=== PATIENT | female | born 1970 | race African-American/Black ===

== ENCOUNTER 2017-01-27 16:40 | Emergency (ER) | payer OTHER ==
[~2017-01-27] VITALS: Ht 165.1 cm; Wt 144.2 kg
[2017-01-27 16:43] VITALS: BP 154/78
[2017-01-27] MEDS ORDERED: VALACYCLOVIR500 MG PO (16:45)
[2017-01-27] MEDS ORDERED: TRIAMTERENE/HCT1 CA1 PO (16:45)
[2017-01-27] MEDS ORDERED: COZAAR 50 MG TA50 M2 PO (16:45)
[2017-01-27] MEDS ORDERED: SENOKOT-S1 TA1 PO (17:29)
[2017-01-27] MEDS ORDERED: IBUPROFEN 600600 M1 PO (17:30)
[2017-01-27] MEDS ORDERED: NORCO 5-325 TA1 EACH PO (17:43)
== END 2017-01-27 18:06 | disposition home or self-care (01) ==
LOC: ER 16:40
DX: S92.352A Displaced fracture of fifth metatarsal bone, left foot, initial encounter for closed fracture (principal); I10 Essential (primary) hypertension; W01.0XXA Fall on same level from slipping, tripping and stumbling without subsequent striking against object, initial encounter; Y93.89 Activity, other specified; Y92.003 Bedroom of unspecified non-institutional (private) residence as the place of occurrence of the external cause; Y99.9 Unspecified external cause status

== ENCOUNTER 2018-01-21 16:53 | Inpatient (IN) | payer OTHER ==
[~2018-01-21] VITALS: Ht 165.1 cm; Wt 163.7 kg
--- NOTE | ~2018-01-21 | EKG ---
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
--- NOTE | ~2018-01-21 | EKG ---
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 : 1970 Requested By: Basilio Lindquist Order Number: [id number] MD: Basilio Lindquist Measurements Intervals [place] Rate: 67 P: 64 VA: 170 QRS: 68 QRSD: 93 T: -59 QT: 451 QTc: 476 Interpretive Statements Sinus rhythm Probable left atrial enlargement Abnormal T, consider ischemia, diffuse leads Compared to ECG 01/21/2018 17:13:30 No significant change was found atrial fibrillation was not present on the January 21, 2018 tracing Electronically Signed On 01-24-2018 12:24:01 CDT by Basilio Lindquist [email or web address] <ELECTRONICALLY SIGNED> By: Basilio Lindquist MD, [facility] 01/24/18 1224 1145 1145 Basilio Lindquist MD, [facility] /EPI
--- NOTE | ~2018-01-21 | 2DMMODE ---
[facility] [address] [place] [address] 2 D/M-MODE ECHOCARDIOGRAM Name: NANCI MAN Room #: 364-P [facility] IN ..#: [id number] Admission: 01/21/18 Attend Phys: Mark Torres MD Discharge: Date of : 68 Date of Service: 01/22/18 1143 Report #: [id number] THIS REPORT FOR: //name// APPROVED REPORT Study performed: 01/22/2018 09:00:30 EXAM: Comprehensive 2D, Doppler, and color-flow Echocardiogram Patient Location: Bedside Room #: 364 Status: routine BSA: 2.54 HR: 58 bpm BP: 115/64 mmHg Other Information Study Quality: Good Technically limited study due to body habitus, inability to position patient. Indications Congestive Heart Failure Dyspnea Hypertension/HDD Echo Enhancing Agent Indication: Rule out Shunt Agent(s) / Amount(s) Used: Agitated Saline 6 cc 2D Dimensions RVDd: 43.63 mm LVEF(%): 76.66 (>50%) IVSd: 17.30 (7-11mm) LVOT Diam: 21.24 (18-24mm) LVDd: 44.36 mm PWd: 16.57 (7-11mm) Ascending Ao: 29.45 (22-36mm) LVDs: 24.33 (25-40mm) Aortic Root: 31.04 mm IVC: 30.00 mm Azevedo's LVEF: 76.66 % Volumes Left Atrial Volume (Systole) Single Plane 4CH: 45.88 mL Single Plane 2CH: 74.22 mL LA ESV Index: 26.00 mL/m2 Aortic Valve AoV Peak Pedro.: 1.68 m/s [facility] [address] [place] [address] 2 D/M-MODE ECHOCARDIOGRAM Name: NANCI MAN Room #: 364-P [facility] IN ..#: [id number] Admission: 01/21/18 Attend Phys: Mark Torres MD Discharge: Date of : 68 Date of Service: 01/22/18 1143 Report #: [id number] AO Peak Gr.: 11.30 mmHg LVOT Max P.93 mmHg LVOT Max V: 1.49 m/s STEFANO Vmax: 3.15 cm2 Mitral Valve E/A Ratio: 0.9 MV Decel. Time: 277.63 ms MV E Max Pedro.: 0.96 m/s MV A Pedro.: 1.07 m/s MV PHT: 80.51 ms IVRT: 78.43 ms Pulmonary Valve PV Peak Pedro.: 1.40 m/s PV Peak Gr.: 7.82 mmHg Pulmonary Vein P Vein S: 0.33 m/s P Vein A: 0.19 m/s P Vein D: 0.32 m/s P Vein A Dur.: 124.6 msec P Vein S/D Ratio: 1.03 Tricuspid Valve TR Peak Pedro.: 4.02 m/s RAP Estimate: 15.00 mmHg TR Peak Gr.: 64.75 mmHg PA Pressure: 80.00 mmHg Left Ventricle The left ventricle is normal size. There is normal LV segmental wall motion. Moderate concentric left ventricular hypertrophy. The left ventricular systolic function is normal. The left ventricular ejection fraction is within the normal range. LVEF is 65-70%. Transmitral Doppler flow pattern suggests impaired LV relaxation. Right Ventricle Right ventricle is moderately dilated. The right ventricular systolic function is normal. Atria The left atrium size is normal. Injection of bubbles confirmed the presence of a [id number]-[id number] interatrial shunt. Right atrium is moderately dilated. Aortic Valve The aortic valve is normal in structure. Trace aortic regurgitation. There is no aortic valvular stenosis. [address] [address] 2 D/M-MODE ECHOCARDIOGRAM Name: NANCI MAN Room #: 364-P [facility] IN [facility]#: [id number] Admission: 01/21/18 Attend Phys: Mark Torres MD Discharge: Date of : 68 Date of Service: 01/22/18 1143 Report #: [id number] Mitral Valve The mitral valve is normal in structure. There is no mitral valve regurgitation noted. No evidence of mitral valve stenosis. Tricuspid Valve The tricuspid valve is normal in structure. Mild to moderate tricuspid regurgitation. PAP is estimated at 80 mmHg. Pulmonic Valve The pulmonary valve is normal in structure. Mild pulmonic regurgitation. Great Vessels The aortic root is normal in size. IVC is dilated and collapses <50% with inspiration. Pericardium There is no pericardial effusion. <Conclusion> The left ventricular systolic function is normal. LVH There is normal LV segmental wall motion. LVEF 65-70%. Right ventricle and right atrium are moderately dilated. Injection of bubbles confirmed the presence of a krmyw-hc-voqq interatrial shunt. ASD vs PFO The aortic valve is normal in structure. No aortic valvular stenosis or insufficiency. The mitral valve is normal in structure. No mitral valve regurgitation noted. Mild to moderate tricuspid regurgitation. Pulmonary artery pressure estimated at 80 mmHg. There is no pericardial effusion. <ELECTRONICALLY SIGNED> By: Basilio Lindquist MD, FACC 01/22/18 1143 1143 1143 Basilio Lindquist MD, FACC /INF
[~2018-01-21 16:53] MED LIST: COZAAR 50 MG TA50 M2 PO; IBUPROFEN 600600 M1 PO; NORCO 5-325 TA1 EACH PO; SENOKOT-S1 TA1 PO; TRIAMTERENE/HCT1 CA1 PO; VALACYCLOVIR500 MG PO
[2018-01-21 17:43] LABS: ABSOLUTE NEUTROPHILS 9.7 thou/uL (1.4-8.2); BASOPHILS 0.4 % (0.0-2.0); HEMATOCRIT 37.1 % (37.0-47.0); HEMOGLOBIN 11.6 gm/dL (12.0-15.0); LYMPHOCYTES 13.6 % (24.0-44.0); MCHC 31.3 g/dL (28.0-37.0); MCV 89.4 fL (80.0-100.0); MONOCYTES 7.5 % (1.0-8.0); PLATELET COUNT 249 thou/uL (150-400); POLYS 78.5 % (36.0-66.0); RBC 4.14 mil/uL (4.20-5.00); RDW 15.8 % (10.5-14.5); WBC 12.4 thou/uL (4.0-11.0)
[2018-01-21 17:44] LABS: CALCIUM 9.2 mg/dL (8.5-10.1); CREATININE 1.5 mg/dL (0.6-1.0); POTASSIUM 3.1 mmol/L (3.5-5.1)
[2018-01-21 17:53] LABS: TROPONIN-I 0.51 ng/mL (<0.06)
[2018-01-21] MEDS ORDERED: VENTOLIN HFA 1818 GM INH (18:26)
[2018-01-21 18:30] VITALS: BP 164/92
[2018-01-21 18:46] LABS: BE(vivo) 6.1 mmol/L (-2 to +3); HCO3 32.1 mmol/L (22.0-26.0); PCO2 53.2 mmHg (35.0-45.0); PO2 65.5 mmHg (80.0-100.0); pH 7.399 (7.360-7.450); sO2 92.6 % (92.0-98.0)
[2018-01-21 19:10] VITALS: BP 177/110
[2018-01-21 19:18] VITALS: BP 164/92
[2018-01-21 23:51] VITALS: BP 122/59
[2018-01-22 03:22] VITALS: BP 115/64
[2018-01-22 06:08] LABS: HEMATOCRIT 33.7 % (37.0-47.0); HEMOGLOBIN 10.7 gm/dL (12.0-15.0); MCH 28.5 pg (26.0-34.0); MCHC 31.8 g/dL (28.0-37.0); MCV 89.7 fL (80.0-100.0); RBC 3.75 mil/uL (4.20-5.00); RDW 15.5 % (10.5-14.5); WBC 9.7 thou/uL (4.0-11.0)
[2018-01-22 06:14] LABS: CALCIUM 8.6 mg/dL (8.5-10.1); CREATININE 1.7 mg/dL (0.6-1.0); POTASSIUM 3.5 mmol/L (3.5-5.1)
[2018-01-22 07:53] VITALS: BP 133/83
[2018-01-22 13:26] VITALS: BP 135/87
[2018-01-22 15:53] VITALS: BP 133/85
[2018-01-22 20:15] VITALS: BP 129/73
[2018-01-23 05:00] VITALS: BP 122/70
[2018-01-23 07:24] LABS: ABSOLUTE NEUTROPHILS 4.9 thou/uL (1.4-8.2); BASOPHILS 0.8 % (0.0-2.0); EOSINOPHILS 1.3 % (0.0-3.0); HEMATOCRIT 35.2 % (37.0-47.0); MCH 28.2 pg (26.0-34.0); MCHC 31.4 g/dL (28.0-37.0); MONOCYTES 8.1 % (1.0-8.0); PLATELET COUNT 207 thou/uL (150-400); POLYS 63.8 % (36.0-66.0); RBC 3.91 mil/uL (4.20-5.00); RDW 15.7 % (10.5-14.5); WBC 7.7 thou/uL (4.0-11.0)
[2018-01-23 07:35] LABS: CALCIUM 8.8 mg/dL (8.5-10.1); CREATININE 1.3 mg/dL (0.6-1.0); POTASSIUM 3.6 mmol/L (3.5-5.1)
[2018-01-23 07:58] VITALS: BP 135/72
[2018-01-23 08:41] LABS: ANISOCYTOSIS 1+; PLATELET ESTIMATE NORMAL; POLYCHROMASIA 1+
[2018-01-23 12:12] VITALS: BP 142/85
[2018-01-23 16:20] VITALS: BP 146/89
[2018-01-23 19:50] VITALS: BP 135/69
[2018-01-24 03:35] VITALS: BP 124/58
[2018-01-24 08:43] VITALS: BP 135/78
[2018-01-24 08:57] LABS: ABSOLUTE NEUTROPHILS 5.2 thou/uL (1.4-8.2); BASOPHILS 0.5 % (0.0-2.0); EOSINOPHILS 0.5 % (0.0-3.0); HEMATOCRIT 35.8 % (37.0-47.0); HEMOGLOBIN 11.4 gm/dL (12.0-15.0); LYMPHOCYTES 18.3 % (24.0-44.0); MCH 28.4 pg (26.0-34.0); MCHC 31.8 g/dL (28.0-37.0); MCV 89.5 fL (80.0-100.0); MONOCYTES 4.9 % (1.0-8.0); PLATELET COUNT 210 thou/uL (150-400); POLYS 75.8 % (36.0-66.0); RBC 4.01 mil/uL (4.20-5.00); RDW 15.6 % (10.5-14.5); WBC 6.8 thou/uL (4.0-11.0)
[2018-01-24 09:05] LABS: CALCIUM 8.9 mg/dL (8.5-10.1); CREATININE 1.2 mg/dL (0.6-1.0); POTASSIUM 3.7 mmol/L (3.5-5.1)
[2018-01-24 12:00] VITALS: BP 119/68
[2018-01-24 16:00] VITALS: BP 140/81
[2018-01-24 20:30] VITALS: BP 111/53
[2018-01-25 05:05] VITALS: BP 122/66
[2018-01-25 07:35] VITALS: BP 125/76
[2018-01-25 08:45] LABS: ABSOLUTE NEUTROPHILS 4.5 thou/uL (1.4-8.2); BASOPHILS 0.6 % (0.0-2.0); EOSINOPHILS 0.8 % (0.0-3.0); HEMATOCRIT 36.8 % (37.0-47.0); HEMOGLOBIN 11.6 gm/dL (12.0-15.0); LYMPHOCYTES 33.5 % (24.0-44.0); MCH 28.1 pg (26.0-34.0); MCHC 31.6 g/dL (28.0-37.0); MCV 88.9 fL (80.0-100.0); MONOCYTES 6.2 % (1.0-8.0); PLATELET COUNT 202 thou/uL (150-400); POLYS 58.9 % (36.0-66.0); RBC 4.14 mil/uL (4.20-5.00); RDW 15.7 % (10.5-14.5); WBC 7.7 thou/uL (4.0-11.0)
[2018-01-25 09:00] LABS: CALCIUM 9.7 mg/dL (8.5-10.1); CREATININE 1.2 mg/dL (0.6-1.0); POTASSIUM 3.7 mmol/L (3.5-5.1)
[2018-01-25 11:13] LABS: BE(vivo) 18.2 mmol/L (-2 to +3); HCO3 44.8 mmol/L (22.0-26.0); PCO2 60.3 mmHg (35.0-45.0); PO2 65.5 mmHg (80.0-100.0); pH 7.489 (7.360-7.450); sO2 93.7 % (92.0-98.0)
[2018-01-25 11:35] VITALS: BP 134/64
[2018-01-25 15:05] VITALS: BP 105/50
[2018-01-25 19:00] VITALS: BP 114/62
[2018-01-26 05:16] LABS: ABSOLUTE NEUTROPHILS 5.8 thou/uL (1.4-8.2); BASOPHILS 0.6 % (0.0-2.0); EOSINOPHILS 0.3 % (0.0-3.0); HEMATOCRIT 39.4 % (37.0-47.0); HEMOGLOBIN 12.3 gm/dL (12.0-15.0); LYMPHOCYTES 17.3 % (24.0-44.0); MCH 27.9 pg (26.0-34.0); MCHC 31.3 g/dL (28.0-37.0); MCV 89.2 fL (80.0-100.0); MONOCYTES 6.1 % (1.0-8.0); PLATELET COUNT 229 thou/uL (150-400); POLYS 75.7 % (36.0-66.0); RBC 4.41 mil/uL (4.20-5.00); RDW 15.8 % (10.5-14.5); WBC 7.7 thou/uL (4.0-11.0)
[2018-01-26 05:26] VITALS: BP 141/80
[2018-01-26 05:37] LABS: CALCIUM 10.2 mg/dL (8.5-10.1); CREATININE 1.6 mg/dL (0.6-1.0); POTASSIUM 4.8 mmol/L (3.5-5.1)
[2018-01-26 07:22] VITALS: BP 118/78
[2018-01-26 11:51] VITALS: BP 96/66
[2018-01-26 12:07] LABS: ANA INTERPRETATION Negative (Negative)
[2018-01-26 16:47] VITALS: BP 112/55
[2018-01-26 19:52] VITALS: BP 108/56
[2018-01-27 03:30] VITALS: BP 155/84
[2018-01-27 05:02] LABS: BE(vivo) 17.6 mmol/L (-2 to +3); HCO3 44.8 mmol/L (22.0-26.0); PCO2 63.9 mmHg (35.0-45.0); pH 7.464 (7.360-7.450)
[2018-01-27 07:10] VITALS: BP 159/94
[2018-01-27 13:21] VITALS: BP 161/95
[2018-01-27 14:43] VITALS: BP 161/95
[2018-01-27 16:44] VITALS: BP 161/95
[2018-01-29 06:12] LABS: IgE 840 IU/mL (0-100)
[2018-01-29 22:10] LABS: HIV-1 BY PCR <40 (())
== END 2018-01-27 19:00 | disposition home or self-care (01) | DRG 871 ==
LOC: ER 16:53 → 3W 18:13 → EROBS 18:13 → 3W 18:58 → ENTRNSPT 01-27 18:41 → 3W 01-27 19:00
PROVIDERS: Emergency Medicine; Hospitalist; Internal Medicine; Internal Medicine Pulmonary Disease
PROC: 5A09357 Assistance with Respiratory Ventilation, Less than 24 Consecutive Hours, Continuous Positive Airway Pressure (ICD-10-PCS; principal; 2018-01-22)
PROC: 05HF33Z Insertion of Infusion Device into Left Cephalic Vein, Percutaneous Approach (ICD-10-PCS; principal; 2018-01-22)
PROC: B24BZZ4 Ultrasonography of Heart with Aorta, Transesophageal (ICD-10-PCS; principal; 2018-01-22)
PROC: 5A09357 Assistance with Respiratory Ventilation, Less than 24 Consecutive Hours, Continuous Positive Airway Pressure (ICD-10-PCS; 2018-01-23)
PROC: 5A09357 Assistance with Respiratory Ventilation, Less than 24 Consecutive Hours, Continuous Positive Airway Pressure (ICD-10-PCS; 2018-01-24)
PROC: 5A09357 Assistance with Respiratory Ventilation, Less than 24 Consecutive Hours, Continuous Positive Airway Pressure (ICD-10-PCS; 2018-01-25)
PROC: 5A09357 Assistance with Respiratory Ventilation, Less than 24 Consecutive Hours, Continuous Positive Airway Pressure (ICD-10-PCS; 2018-01-26)
PROC: 5A09357 Assistance with Respiratory Ventilation, Less than 24 Consecutive Hours, Continuous Positive Airway Pressure (ICD-10-PCS; 2018-01-27)
DX: A41.9 Sepsis, unspecified organism (principal); J18.9 Pneumonia, unspecified organism; J96.01 Acute respiratory failure with hypoxia; J96.02 Acute respiratory failure with hypercapnia; I50.31 Acute diastolic (congestive) heart failure; Z68.44 Body mass index [BMI] 60.0-69.9, adult; B00.52 Herpesviral keratitis; E66.2 Morbid (severe) obesity with alveolar hypoventilation; I11.0 Hypertensive heart disease with heart failure; I27.81 Cor pulmonale (chronic); G47.33 Obstructive sleep apnea (adult) (pediatric); I27.20 Pulmonary hypertension, unspecified; I07.1 Rheumatic tricuspid insufficiency; T50.2X5A Adverse effect of carbonic-anhydrase inhibitors, benzothiadiazides and other diuretics, initial encounter; Y92.89 Other specified places as the place of occurrence of the external cause; Z91.19 Patient's noncompliance with other medical treatment and regimen; Z79.899 Other long term (current) drug therapy; Z82.49 Family history of ischemic heart disease and other diseases of the circulatory system
CPT/HCPCS: 10879; 27001

== ENCOUNTER → 2018-04-02 | Outpatient (CLI) | payer OTHER ==
[~2018-04-02] MED LIST changes: +VENTOLIN HFA 1818 GM INH
== END ==
LOC: RAD 16:22
DX: I51.7 Cardiomegaly (principal); J98.59 Other diseases of mediastinum, not elsewhere classified

== ENCOUNTER → 2018-05-07 | Outpatient (CLI) | payer OTHER ==
--- NOTE | ~2018-05-07 | 2DMMODE ---
[facility] [address] [place] [address] 2 D/M-MODE ECHOCARDIOGRAM Name: NANCI MAN Room #: REG REPLACED BY [facility]#: [id number] Admission: 05/07/18 Attend Phys: John Hill Discharge: Date of : 68 Date of Service: 05/07/18 1458 Report #: [id number] THIS REPORT FOR: //name// APPROVED REPORT Study performed: 05/07/2018 13:50:52 EXAM: Comprehensive 2D, Doppler, and color-flow Echocardiogram Patient Location: Out-Patient Status: routine BSA: 2.40 HR: 70 bpm BP: 145/11 mmHg Rhythm: NSR Other Information Study Quality: Adequate Indications Short of breath. History of Pulmonary artery pressures of 80mmHg (01/2018), HTN, morbid obesity. 2D Dimensions RVDd: 35.67 mm LVEF(%): 66.02 (>50%) IVSd: 15.12 (7-11mm) LVOT Diam: 21.82 (18-24mm) LVDd: 45.96 mm PWd: 13.50 (7-11mm) Ascending Ao: 32.82 (22-36mm) LVDs: 29.29 (25-40mm) Aortic Root: 35.89 mm Azevedo's LVEF: 66.02 % Volumes Left Atrial Volume (Systole) Single Plane 4CH: 54.05 mL Single Plane 2CH: 65.36 mL LA ESV Index: 27.00 mL/m2 Aortic Valve AoV Peak Pedro.: 1.65 m/s AO Peak Gr.: 10.83 mmHg LVOT Max P.56 mmHg LVOT Max V: 1.37 m/s STEFANO Vmax: 3.12 cm2 Mitral Valve E/A Ratio: 0.9 [facility] [place] [address] 2 D/M-MODE ECHOCARDIOGRAM Name: NANCI MAN [id number] Admission: 05/07/18 Attend Phys: John Hill Discharge: Date of : 68 Date of Service: 05/07/18 1458 Report #: [id number] MV Decel. Time: 252.59 ms MV E Max Pedro.: 0.95 m/s MV A Pedro.: 1.09 m/s MV PHT: 73.25 ms IVRT: 69.20 ms Pulmonary Valve PV Peak Pedro.: 1.41 m/s PV Peak Gr.: 7.95 mmHg Pulmonary Vein P Vein S: 0.66 m/s P Vein A: 0.28 m/s P Vein D: 0.57 m/s P Vein A Dur.: 101.5 msec P Vein S/D Ratio: 1.16 Tricuspid Valve TR Peak Pedro.: 2.80 m/s RAP Estimate: 5.00 mmHg TR Peak Gr.: 31.34 mmHg PA Pressure: 36.00 mmHg Left Ventricle The left ventricle is normal size. There is normal LV segmental wall motion. Moderate concentric left ventricular hypertrophy. Left ventricular systolic function is normal. LVEF is 60-65%. Mild diastolic dysfunction is present (impaired relaxation pattern). Right Ventricle The right ventricle is normal size. The right ventricular systolic function is normal. Atria The left atrium size is normal. History of positive bubble study in January 2018 showing right to left shunting. The right atrium size is normal. Aortic Valve The aortic valve is normal in structure. No aortic regurgitation is present. There is no aortic valvular stenosis. Mitral Valve The mitral valve is normal in structure. There is no mitral valve regurgitation noted. Tricuspid Valve The tricuspid valve is normal in structure. Trace to mild tricuspid regurgitation. Estimated PAP is 35-40[place]. [place] [address] 2 D/M-MODE ECHOCARDIOGRAM Name: NANCI MAN Room #: REG REPLACED BY [facility]#: [id number] Admission: 05/07/18 Attend Phys: John Hill Discharge: Date of : 68 Date of Service: 05/07/18 1458 Report #: [id number] Pulmonic Valve Pulmonic valve is not well visualized. There is no pulmonic valvular regurgitation. Great Vessels The aortic root is normal in size. The ascending aorta is normal in size. IVC is normal in size and collapses >50% with inspiration. Pericardium There is no pericardial effusion. <Conclusion> Left ventricular systolic function is normal. There is normal LV segmental wall motion. Moderate concentric left ventricular hypertrophy. Mild diastolic dysfunction The aortic valve is normal in structure. No aortic regurgitation or stenosis The mitral valve is normal in structure. No mitral valve regurgitation Trace to mild tricuspid regurgitation. Estimated pulmonary artery pressure of 35-40mmHg. There is no pericardial effusion. <ELECTRONICALLY SIGNED> By: Basilio Lindquist MD, FACC 05/07/18 1458 1458 1458 Basilio Lindquist MD, FACC /INF
== END ==
LOC: CV 12:46
DX: I07.1 Rheumatic tricuspid insufficiency (principal); I10 Essential (primary) hypertension; E66.01 Morbid (severe) obesity due to excess calories

== ENCOUNTER → 2020-08-24 | Outpatient (CLI) | payer OTHER | LOC: RAD 11:09 | PROVIDERS: ATTEND Nurse Practitioner | DX: M54.16 Radiculopathy, lumbar region (principal); M41.86 Other forms of scoliosis, lumbar region; M25.762 Osteophyte, left knee ==